=== PATIENT | female | born 1990 | race Native Hawaiian/Other Pacific Islander ===

== ENCOUNTER 2016-08-28 23:29 | Emergency (ER) | payer OTHER ==
--- NOTE | ~2016-08-28 | CT2 ---
[facility] A Service of [facility] RADIOLOGY TEXT RESULTS PATIENT: SYLVIA WALKER LOCATION: [facility] : [birth year] UNIT #: [id number] AGE: [address]: Johnathan Jesus MD SEX: F ORDER DR: [id number] [facility] [address] [place], [place] [address] [id number] E MR#: [id number] #: [id number] NAME: SYLVIA WALKER : 1990 SEX: F STUDY DATE/TIME: 08/29/2016 0:51 UNIT: [facility] ROOM: STUDY DESCRIPTION: CT Abd and Pelv W Cont Attending Physician: Johnathan Jesus Ordering Physician: Johnathan Jesus, [id number] Primary Care Physician: Primary Care Physician No MEDICAL IMAGING REPORT This report is preliminary unless electronic signature is present EXAM CT abdomen and pelvis without IV contrast COMPARISON None INDICATIONS 25-year-old female with right lower quadrant abdominal pain and nausea for 1 day. The patient is [address] exam was performed with one or more of the following radiation dose reduction techniques: automatic exposure control, adjustment of mA and/or kV according to patient size, and iterative reconstruction. FINDINGS Axial CT imaging of the abdomen and pelvis was performed after IV administration of mL Isovue 370. Coronal and sagittal reformats were constructed. Small fat-containing umbilical hernia. Detailed evaluation of the abdominal and pelvic organs is limited by motion. Calcified and noncalcified injection granulomas are noted in the subcutaneous fat overlying the gluteus musculature bilaterally. Small posterior disc protrusion at L5-S1. No acute fractures or suspicious osseous lesions. There is dextrocurvature of the lumbar spine which may be positional or reflective of scoliosis. Similarly there is levocurvature of the thoracic spine. No acute findings in imaged lower chest. Allowing for motion, the liver, gallbladder, pancreas, spleen, adrenal glands and kidneys are unremarkable. No hydroureter or ureteral calculus. Urinary bladder is fluid distended but otherwise unremarkable. Uterus and adnexa are within normal limits. The appendix is normal. There is a moderate diffuse colonic stool burden. There is fecalization of contents in the terminal ileum suggesting stasis. No evidence of mechanical bowel obstruction. Abdominal aorta is normal in course and caliber, with patency of its main branches. No evidence of venous thrombosis. There is trace free fluid in STS. [facility] A Service of [facility] RADIOLOGY TEXT RESULTS PATIENT: SYLVIA WALKER LOCATION: [facility] : [birth year] UNIT #: [id number] AGE: [address]: Johnathan Jesus MD SEX: F ORDER DR: the pelvis. This may be physiologic. No pneumoperitoneum. No adenopathy. There is a simple cyst of the right ovary measuring up to 1.5 cm. IMPRESSION 1. No evidence of acute appendicitis. There is significant fecalization of bowel contents in the terminal ileum in the right lower quadrant of the abdomen. This suggests stasis of ingested material. Uncertain if this could be causing the patient's pain. There are no acute findings in the abdomen, pelvis or imaged lower chest. There is minimal free fluid in the pelvis favored to be physiologic. 2. S-shaped curvature of the thoracolumbar spine perhaps reflecting mild scoliosis. This is thought less likely to be positional. 3. Simple right ovarian cyst. 4. Small posterior disc protrusion at L5-S1. Dictated by... Ed Buckner M.D. THIS IS AN ELECTRONICALLY VERIFIED REPORT Ed Buckner M.D. at 09/01/2016 10:14 PM Vaibhav TD: 08/29/2016 06:06 JOB #: [id number] MEDICAL IMAGING REPORT COPY
--- NOTE | ~2016-08-28 | CT71 ---
[facility] A Service [facility] RADIOLOGY TEXT RESULTS PATIENT: SYLVIA WALKER LOCATION: [facility] : [birth year] UNIT #: [id number] AGE: [address]: Johnathan Jesus MD SEX: F ORDER DR: [id number] [id number] [facility]. [place], [place] [address] [id number] E MR#: [id number] #: [id number] NAME: SYLVIA WALKER : 1990 SEX: F STUDY DATE/TIME: 08/29/2016 0:40 UNIT: [facility] ROOM: STUDY DESCRIPTION: CT Head Wo Contrast Attending Physician: Johnathan Jesus Ordering Physician: Burak Jesus M.D. Primary Care Physician: Primary Care Physician No MEDICAL IMAGING REPORT This report is preliminary unless electronic signature is present EXAM CT head without IV contrast. COMPARISON STUDIES None. TECHNIQUE This CT exam was performed with one or more of the following radiation dose reduction techniques: automatic exposure control, adjustment of mA and/or kV according to patient size, and iterative reconstruction. INDICATION A 25-year-old female with headache for 1 day. The patient is 5 months . FINDINGS There is mild mucosal thickening of the ethmoid air cells as well as the dependent left sphenoid sinus and the right frontal sinus. There are no paranasal sinus air-fluid levels. Mastoid air cells middle ears are well-aerated. No acute fracture or suspicious osseous lesion. Normal cerebral volume. No mass effect. No abnormal extraaxial fluid collection or acute intracranial hemorrhage. No evidence of acute ischemia. IMPRESSION 1. Mild paranasal sinus mucosal thickening of uncertain acuity. No paranasal sinus air-fluid levels. 2. No acute intracranial abnormality. Dictated by... Ed Buckner M.D. [facility] A Service [facility] RADIOLOGY TEXT RESULTS PATIENT: SYLVIA WALKER LOCATION: [facility] : [birth year] UNIT #: [id number] AGE: [address]: Johnathan Jesus MD SEX: F ORDER DR: THIS IS AN ELECTRONICALLY VERIFIED REPORT Ed Buckner M.D. at 09/01/2016 8:05 AM Sharath TD: 08/29/2016 04:43 JOB #: [id number] MEDICAL IMAGING REPORT COPY
[2016-08-28 23:21] LABS: BASOPHIL# 0.1 X10e3 (0-0.3); EOSINOPHIL# 0.4 X10e3 (0-0.7); EOSINOPHIL% 5.7 % (0.0-7.0); HEMATOCRIT 40.1 % (35.0-45.0); HEMOGLOBIN 13.6 gm/dL (12.0-16.0); LYMPHOCYTE% 38.8 % (17.0-45.0); MEAN CELL VOLUME 88.6 FL (83-96); MEAN CORPUSCULAR HEMOGLOBIN 30.1 PG (28-34); MEAN CORPUSCULAR HGB CONC 33.9 g/dL (30-36); MEAN PLATELET VOLUME 8.1 FL (6.5-11.5); MONOCYTE# 0.4 X10e3 (0-1.0); MONOCYTE% 4.8 % (3.0-12.0); NEUTROPHIL# 3.9 X10e3 (1.5-7.1); NEUTROPHIL% 49.7 % (40-75); PLATELET COUNT 250 X10e3 (140-420); RED BLOOD COUNT 4.53 X10e (3.90-5.30); RED CELL DISTRIBUTION WIDTH 12.2 % (11.0-15.5); WHITE BLOOD COUNT 7.8 X10e3 (4.0-10.5)
[2016-08-28 23:23] LABS: DIFF IND NO
[2016-08-28 23:47] LABS: ALBUMIN SERUM 4.3 g/dL (3.5-5.0); ALKALINE PHOSPHATASE 69 U/L (32-92); ALT (SGPT) 18 U/L (10-40); AST (SGOT) 20 U/L (10-42); BILIRUBIN, DIRECT 0.1 mg/dL (0.0-0.2); BILIRUBIN,INDIRECT 0.4 mg/dL (0.0-0.9); BILIRUBIN,TOTAL 0.5 mg/dL (0.2-2.0); BLOOD UREA NITROGEN 8 mg/dL (9-23); BUN/CREATININE RATIO 11.42; CALCIUM SERUM 8.9 mg/dL (8.4-10.2); CARBON DIOXIDE 26 mmol/L (22-31); CHLORIDE 106 mmol/L (100-111); CREATININE SERUM 0.7 mg/dL (0.6-1.4); GLOM FILT RATE Estimated ABOVE60 mL/min (>60); GLUCOSE FASTING 91 mg/dL (70-110); LIPASE 24 U/L (22-51); PROTEIN TOTAL SERUM 7.8 g/dL (6.0-8.3); SODIUM 137 mmol/L (135-145)
[2016-08-29 00:03] LABS: URINE SOURCE CLEAN CATCH
[2016-08-29 00:12] LABS: URINE APPEARANCE CLEAR; URINE BILIRUBIN NEG (NEG); URINE BLOOD NEG (NEG); URINE COLOR YELLOW; URINE GLUCOSE NEG (NEG); URINE KETONE NEG (NEG); URINE LEUKOCYTE ESTERASE TRACE (NEG); URINE NITRATE NEG (NEG); URINE PROTEIN NEG (NEG); URINE SPECIFIC GRAVITY 1.006 (1.003-1.035); URINE UROBILINOGEN 0.2 MG/DL (NEG)
[2016-08-29 00:15] LABS: CULTURE INDICATED? YES; U HYALINE CASTS AUWI 0-2 /[LPF]; URBCS1 AUWI 0-2 /[HPF] (0-2); URINE BACTERIA AUWI 1+ (NEGATIVE); URINE SQUAMOUS EPITHELIAL CELL FEW /[HPF]
== END 2016-08-29 02:00 | disposition home or self-care (01) ==
LOC: CED 23:29
PROVIDERS: Emergency Medicine
DX: N30.00 Acute cystitis without hematuria (principal); K59.00 Constipation, unspecified; J32.9 Chronic sinusitis, unspecified
CPT/HCPCS: 36415; 70450; 74177; 80048; 80076; 81003; 83690; 84703; 85025; 87086; 96374; 99284; J2405; Q9967